=== PATIENT | male | born 1980 | race African-American/Black ===

== ENCOUNTER 2016-08-01 16:07 | Observation (INO) | payer MEDICAID, OTHER ==
[~2016-08-01] VITALS: Ht 170.2 cm; Wt 75.5 kg
[~2016-08-01 16:07] MED LIST: ZOFR4TAB3 SL
[2016-08-01 16:09] VITALS: BP 170/93; PULSE 60; RESP 16; TEMP 98; O2SAT 100
--- NOTE | 2016-08-01 16:50 | PD ---
HPI Chief Complaint: Cardiac Complaint Time Seen by Provider: 16:47 Travel History International Travel<30 days: No Contact w/Intl Traveler<30days: No Traveled to known affect area: No History of Present Illness HPI 35-year-old Afro-[place] male presents the emergency department after being seen by his primary care physician earlier today. Patient was being seen for his chronic back pain, and had an EKG performed by his PCP. PCP noted some EKG changes which concerned them and which is why he was sent to the emergency department. Patient has had intermittent chest pain over the past several months. Patient currently denies current chest pain or shortness of breath, or exertional issues of any kind. He has no fever, chills cough, or other symptoms. Patient states he is supposed be taking losartan for hypertension which she has not been taking for months. Patient is allergic to sulfa. PFSH Past Medical History Diminished Hearing: No Hypertension: Yes Immunizations Current: Yes Social History Alcohol Use: Yes (OCC) Tobacco Use: No Substance Use: No Allergies-Medications (Allergen,Severity, Reaction): Coded Allergies: Sulfa (Verified Allergy, Severe, 08/01/16) Reported Meds & Prescriptions Reported Meds & Active Scripts Active Reported Losartan (Losartan Potassium) 100 Mg Tab 100 Mg PO DAILY Robaxin (Methocarbamol) 500 Mg Tab 500 Mg PO TID Review of Systems Except as stated in HPI: all other systems reviewed are Neg General / Constitutional: No: Fever Eyes: No: Visual changes HENT: No: Headaches Cardiovascular: Positive: Chest Pain or Discomfort (see history present illness.) Respiratory: No: Shortness of Breath Gastrointestinal: No: Abdominal Pain Genitourinary: No: Dysuria Musculoskeletal: Positive: Myalgias (chronic back pain.), No: Pain Skin: No Rash Neurologic: No: Weakness Psychiatric: No: Depression Endocrine: No: Polydipsia Hematologic/Lymphatic: No: Easy Bruising Physical Exam Narrative GENERAL: Patient appears no acute distress. SKIN: Warm and dry. Normal color. Normal turgor. HEAD: Atraumatic. Normocephalic. EYES: Pupils equal and round. No scleral icterus. No injection or drainage. ENT: No nasal bleeding or discharge. Mucous membranes pink and moist. NECK: Trachea midline. No JVD. Neck is supple nontender. CARDIOVASCULAR: Regular rate and rhythm. No murmurs gallops or rubs. RESPIRATORY: No accessory muscle use. Clear to auscultation. Breath sounds equal bilaterally. GASTROINTESTINAL: Abdomen soft, non-tender, nondistended. Hepatic and splenic margins not palpable. MUSCULOSKELETAL: Extremities without clubbing, cyanosis, or edema. No obvious deformities. NEUROLOGICAL: Awake and alert. No obvious cranial nerve deficits. Motor grossly within normal limits. Five out of 5 muscle strength in the arms and legs. Normal speech. PSYCHIATRIC: Appropriate mood and affect; insight and judgment normal. Data Data Last Documented VS Vital Signs Date Time Temp Pulse Resp B/P Pulse Ox O2 Delivery O2 Flow Rate FiO2 08/01/16 18:30 56 145/95 08/01/16 16:09 98.0 16 100 Orders Electrocardiogram (08/01/16 ) Ckmb (Isoenzyme) Profile (08/01/16 16:55) Complete Blood Count With Diff (08/01/16 16:55) Comprehensive Metabolic Panel (08/01/16 16:55) Magnesium (Mg) (08/01/16 16:55) Prothrombin Time / Inr (Pt) (08/01/16 16:55) Act Partial Throm Time (Ptt) (08/01/16 16:55) Troponin I (08/01/16 16:55) Chest, Single Ap (08/01/16 16:55) Ecg Monitoring (08/01/16 16:55) Bilateral Bp Monitoring (08/01/16 16:55) Iv Access Insert/Monitor (08/01/16 16:55) Oximetry (08/01/16 16:55) Oxygen Administration (08/01/16 16:55) Aspirin Chew (Aspirin Chew) (08/01/16 17:00) Sodium Chloride 0.9% Flush (Ns Flush) (08/01/16 17:00) Ondansetron Inj (Zofran Inj) (08/01/16 17:15) Drug Screen, Random Urine (08/01/16 17:04) Nitroglycerin Sl (Nitrostat Sl) (08/01/16 17:15) CKMB (08/01/16 16:50) CKMB% (08/01/16 16:50) Place In Observation (08/01/16 18:13) Activity Bed Rest With Brp (08/01/16 18:13) Vital Signs (Adult) Q4H (08/01/16 18:13) Cardiac Rhythm .As Directed (08/01/16 18:13) Notify Dr: Other .PRN (08/01/16 18:13) Resp Oxygen Nasal Cannula (08/01/16 ) Diet Heart Healthy (08/01/16 Dinner) Ckmb (Isoenzyme) Profile (08/01/16 18:13) Ckmb (Isoenzyme) Profile (08/01/16 21:13) Troponin I (08/01/16 18:13) Troponin I (08/01/16 21:13) Electrocardiogram (08/01/16 18:13) Electrocardiogram (08/01/16 21:13) ^ Obtain (08/01/16 18:13) Sodium Chloride 0.9% Flush (Ns Flush) (08/01/16 18:15) Sodium Chloride 0.9% Flush (Ns Flush) (08/01/16 21:00) Ondansetron Inj (Zofran Inj) (08/01/16 18:15) Lisinopril (Prinivil) (08/01/16 18:15) Nitroglycerin Sl (Nitrostat Sl) (08/01/16 18:15) Automatic Dispenser Mechanic / Telemetry ANNEMARIE.Q8H (08/01/16 18:13) Labs Laboratory Tests Test 08/01/16 08/01/16 16:50 18:30 Prothrombin Time 10.7 SEC Prothromb Time International 1.0 RATIO Ratio Activated Partial 27.1 SEC Thromboplast Time Sodium Level 142 MEQ/L Potassium Level 4.8 MEQ/L Chloride Level 109 MEQ/L Carbon Dioxide Level 27.7 MEQ/L Anion Gap 5 MEQ/L Blood Urea Nitrogen 13 MG/DL Creatinine 0.94 MG/DL Estimat Glomerular Filtration 112 ML/MIN Rate Random Glucose 87 MG/DL Calcium Level 8.3 MG/DL Magnesium Level 2.1 MG/DL Total Bilirubin 0.5 MG/DL Aspartate Amino Transf 47 U/L (AST/SGOT) Alanine Aminotransferase 25 U/L (ALT/SGPT) Alkaline Phosphatase 56 U/L Total Creatine Kinase 314 U/L Creatine Kinase MB LESS THAN 0.5 NG/ML Creatine Kinase MB % 0.2 % Troponin I LESS THAN 0.02 NG/ML Total Protein 7.7 GM/DL Albumin 3.7 GM/DL White Blood Count 5.9 TH/MM3 Red Blood Count 4.42 MIL/MM3 Hemoglobin 11.9 GM/DL Hematocrit 36.5 % Mean Corpuscular Volume 82.6 FL Mean Corpuscular Hemoglobin 26.8 PG Mean Corpuscular Hemoglobin 32.5 % Concent Red Cell Distribution Width 13.4 % Platelet Count 96 TH/MM3 Mean Platelet Volume 11.1 FL Neutrophils (%) (Auto) 37.4 % Lymphocytes (%) (Auto) 49.9 % Monocytes (%) (Auto) 6.3 % Eosinophils (%) (Auto) 5.5 % Basophils (%) (Auto) 0.9 % Neutrophils # (Auto) 2.2 TH/MM3 Lymphocytes # (Auto) 2.9 TH/MM3 Monocytes # (Auto) 0.4 TH/MM3 Eosinophils # (Auto) 0.3 TH/MM3 Basophils # (Auto) 0.1 TH/MM3 CBC Comment AUTO DIFF MDM Medical Decision Making Medical Screen Exam Complete: Yes Emergency Medical Condition: Yes Medical Record Reviewed: Yes Differential Diagnosis Atypical chest pain. Cardiac syndrome. Arrhythmia. Pericarditis. Narrative Course Patient is medically stable at time of exam. EKG is performed showing sinus rhythm with sinus arrhythmia with inflected T waves in V1 suggestive of pericarditis versus early repolarization. This was reviewed by Dr. Sher and Dr. August. Labs ordered including CBC, CMP, cardiac panel, and urine drug screen. Patient is given 324 mg aspirin by mouth as well as 4 mg Zofran IV. Chest x-ray is ordered as well. Patient is discussed with Dr. August who sees the patient as well. Patient is given sublingual nitroglycerin 0.4 by mouth to see if it helps his pain as well as his blood pressure which is elevated at 140/100. Chest x-ray is negative for acute process per radiologist. CBC is within normal limits except for mild anemia. CMP is within normal limits. Cardiac panel is normal with a troponin of less than 0.02. Patient is felt to warrant chest pain center admission. This was discussed with the patient and the patient agrees. Patient moves the chest pain center. Diagnosis Primary Impression: Chest pain in adult Admitting Information Admitting Physician Requests: Observation Condition: Stable Norman Aragon Aug 01, 2016 16:50
[2016-08-01] MEDS ORDERED: SODIUM CHLORIDE 0.9% FLUSH 10 ML FLUSH IVF PRN (17:00)
[2016-08-01] MEDS ORDERED: ASPIRIN 81 MG CHEW TAB PO ONE (17:00)
[2016-08-01] MEDS ORDERED: ONDANSETRON HCL 4 MG/2 ML VIAL IV PUSH ONE (17:15)
[2016-08-01] MEDS ORDERED: NITROGLYCERIN 0.4 MG SL 25 TABS/BTL SL ONE (17:15)
--- NOTE | 2016-08-01 17:15 | RADRPT ---
EXAM DATE/TIME: 08/01/2016 16:53 [facility] COMPARISON: No previous studies available for comparison. INDICATIONS : Irregular heart rate starting today. MEDICAL HISTORY : None. SURGICAL HISTORY : None. ENCOUNTER: Initial ACUITY: 1 day PAIN SCORE: 2/10 LOCATION: Bilateral chest FINDINGS: A single view of the chest demonstrates the lungs to be symmetrically aerated without evidence of mas s, infiltrate or effusion. The cardiomediastinal contours are unremarkable. Osseous structures are intact. CONCLUSION: No acute cardiopulmonary process. Lungs are clear. Sher Soliz MD on August 01, 2016 at 17:13 Board Certified Radiologist. This report was verified electronically.
[2016-08-01] MEDS ORDERED: ROBA500T PO (17:28)
[2016-08-01] MEDS ORDERED: LOSA100T PO (17:28)
[2016-08-01 17:58] LABS: ALT (GPT) 25 U/L (12-78); ANION GAP 5 MEQ/L (5-15); AST (GOT) 47 U/L (15-37); BICARBONATE 27.7 MEQ/L (21.0-32.0); BLOOD UREA NITROGEN 13 MG/DL (7-18); CHLORIDE 109 MEQ/L (98-107); GLOMERULAR FILTRATION RATE 112 ML/MIN (>89); MAGNESIUM 2.1 MG/DL (1.5-2.5); SODIUM (NA) 142 MEQ/L (136-145)
[2016-08-01 18:02] LABS: POTASSIUM 4.8 MEQ/L (3.5-5.1)
[2016-08-01 18:06] LABS: ALKALINE PHOSPHATASE 56 U/L (45-117); CREATINE KINASE 314 U/L (39-308); TOTAL BILIRUBIN ADULT 0.5 MG/DL (0.2-1.0)
[2016-08-01] MEDS ORDERED: ONDANSETRON HCL 4 MG/2 ML VIAL IV PRN (18:15)
[2016-08-01] MEDS ORDERED: NITROGLYCERIN 0.4 MG SL 25 TABS/BTL SL PRN (18:15)
[2016-08-01] MEDS ORDERED: SODIUM CHLORIDE 0.9% FLUSH 10 ML FLUSH IV FLUSH PRN (18:15)
[2016-08-01 18:19] LABS: CKMB LESS THAN 0.5 NG/ML (0.5-3.6)
[2016-08-01 18:30] VITALS: BP 145/95; PULSE 56
[2016-08-01 18:50] LABS: AUTOMATED NEUTROPHIL # 2.2 TH/MM3 (1.8-7.7); BASOPHIL # 0.1 TH/MM3 (0-0.2); BASOPHIL % 0.9 % (0.0-2.0); EOSINOPHIL # 0.3 TH/MM3 (0-0.4); EOSINOPHIL % 5.5 % (0.0-4.0); HEMATOCRIT 36.5 % (39.0-51.0); LYMPH % 49.9 % (9.0-44.0); LYMPHOCYTE # 2.9 TH/MM3 (1.0-4.8); MEAN CELL VOLUME 82.6 FL (80.0-100.0); MEAN CORPUSCULAR HEMOGLOBIN 26.8 PG (27.0-34.0); MEAN CORPUSCULAR HGB CONC 32.5 % (32.0-36.0); MONO % 6.3 % (0.0-8.0); NEUT % 37.4 % (16.0-70.0); PLATELET COUNT 96 TH/MM3 (150-450); RED BLOOD COUNT 4.42 MIL/MM3 (4.50-5.90); RED CELL DISTRIBUTION WIDTH 13.4 % (11.6-17.2); WHITE BLOOD COUNT 5.9 TH/MM3 (4.0-11.0)
[2016-08-01 18:52] LABS: HEMO FLAGS AUTO DIFF
[2016-08-01 18:56] LABS: APTT (PATIENT) 27.1 SEC (24.3-30.1); PROTHROMBIN TIME - PATIENT 10.7 SEC (9.8-11.6)
[2016-08-01 19:05] VITALS: BP 155/89; PULSE 71; RESP 16; O2SAT 98
[2016-08-01] MEDS: LISINOPRIL 10 MG TAB PO SCH (19:06)
[2016-08-01 19:07] LABS: AMPHETAMINE, URINE NEG (NEG); BARBITURATES, URINE NEG (NEG); COCAINE, URINE POS (NEG)
[2016-08-01 19:22] LABS: ACANTHOCYTES OCC (NORMAL); OVALOCYTES 1+ (NORMAL); PLATELET ESTIMATE SMEAR LOW (NORMAL); PLATELET MORPHOLOGY NORMAL (NORMAL); SCAN/DIFF AUTO DIFF CONFIRMED
[2016-08-01 20:25] LABS: CREATINE KINASE 170 U/L (39-308)
[2016-08-01 20:38] LABS: CKMB LESS THAN 0.5 NG/ML (0.5-3.6)
[2016-08-01 21:47] VITALS: BP 153/93; PULSE 52; RESP 19; TEMP 98.2; O2SAT 98
[2016-08-01 22:00] VITALS: PULSE 55
[2016-08-01] MEDS: SODIUM CHLORIDE 0.9% FLUSH 10 ML FLUSH IV FLUSH SCH (22:05)
[2016-08-01 23:00] LABS: CREATINE KINASE 158 U/L (39-308)
[2016-08-01 23:13] LABS: CKMB LESS THAN 0.5 NG/ML (0.5-3.6)
[2016-08-02 03:46] VITALS: BP 119/76; PULSE 45; RESP 19; TEMP 98.2; O2SAT 99
[2016-08-02 04:56] VITALS: PULSE 48
[2016-08-02 07:33] VITALS: PULSE 56
[2016-08-02 07:38] VITALS: BP 132/92; PULSE 68; RESP 18; TEMP 97.6; O2SAT 100
[2016-08-02 07:40] VITALS: PULSE 56
[2016-08-02] MEDS ORDERED: ACETAMINOPHEN 500 MG CPLT PO PRN (08:00)
[2016-08-02] MEDS: SODIUM CHLORIDE 0.9% FLUSH 10 ML FLUSH IV FLUSH SCH (08:33)
[2016-08-02] MEDS: LISINOPRIL 10 MG TAB PO SCH (08:33)
[2016-08-02] MEDS ORDERED: ASPIRIN 325 MG TAB PO SCH (09:00)
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
--- NOTE | 2016-08-02 11:53 | TR ---
Date Performed: 08/02/2016 Time Performed: 10:38:10 DOCTOR: Dylan García DRUG LIST: CLINICAL HISTORY: CHEST PAIN REASON FOR TEST: REASON FOR ENDING: OBSERVATION: CONCLUSION: Johnny protocol completed. Stopped sec to exceeding target heart rate and leg fatigue . Maximum NJ=347 Target HR Achieved=89.0% Total Exercise Time=10:01. No reprod chest discomfort. No e ctopy. No st t segment changes to sugg ischemia. Good exercise tolerance. Normal bp response. Recover y quick and unremarkable. COMMENTS: Conclusion: Normal treadmill exercise. No evidence of ischemia.
[2016-08-02] MEDS ORDERED: LOSARTAN 50 MG TAB PO SCH (12:00)
--- NOTE | 2016-08-02 12:25 | HHI.DCPOC ---
Discharge Care Plan Diagnosis: (1) Hypertension (2) Chest wall pain Goals to Promote Your Health * To prevent worsening of your condition and complications * To maintain your health at the optimal level Directions to Meet Your Goals Take your medications as prescribed Follow your dietary instruction Follow activity as directed Keep your appointments as scheduled Take your immunizations and boosters as scheduled If your symptoms worsen call your PCP, if no PCP go to Urgent Care Center or Emergency Room Smoking is Dangerous to Your Health. Avoid second hand smoke Call the 24-hour hour crisis hotline for domestic abuse at Noemy Terry Aug 02, 2016 12:25
--- NOTE | 2016-08-02 14:42 | EKG ---
Date Performed: 08/01/2016 Time Performed: 23:00:48 PTAGE: 35 years EKG: SINUS BRADYCARDIA EARLY REPOLARIZATION BORDERLINE ECG NO PREVIOUS TRACING DOCTOR: Dylan García Interpretating Date/Time 08/02/2016 14:40:56
--- NOTE | 2016-08-02 14:43 | EKG ---
Date Performed: 08/01/2016 Time Performed: 19:46:53 PTAGE: 35 years EKG: SINUS BRADYCARDIA EARLY REPOLARIZATION BORDERLINE ECG Since PREVIOUS TRACING , no significant change noted DOCTOR: Dylan García Interpretating Date/Time 08/02/2016 14:41:31
--- NOTE | 2016-08-02 14:43 | EKG ---
Date Performed: 08/01/2016 Time Performed: 16:18:44 PTAGE: 35 years EKG: Sinus rhythm WITH SINUS ARRHYTHMIA MINIMAL VOLTAGE CRITERIA FOR LVH, CONSIDER NORMAL VARIANT ST ELEVATION, PROBAB LY EARLY REPOLARIZATION BORDERLINE ECG NO PREVIOUS TRACING DOCTOR: Dylan García Interpretating Date/Time 08/02/2016 14:41:49
== END 2016-08-02 18:32 | disposition home or self-care (01) ==
LOC: NEPC 16:07 → NEDA 19:02 → NEPGCP 21:26
DX: I10 Essential (primary) hypertension (principal); R07.89 Other chest pain; M54.9 Dorsalgia, unspecified; G89.29 Other chronic pain; D64.9 Anemia, unspecified; R94.31 Abnormal electrocardiogram [ECG] [EKG]; F12.90 Cannabis use, unspecified, uncomplicated; F14.90 Cocaine use, unspecified, uncomplicated; Z88.2 Allergy status to sulfonamides
CPT/HCPCS: 71010; 80053; 80307; 82550; 82552; 83735; 84484; 85025; 85610; 85730; 93005; 93017; 96374; 99285; G0378; J2405